=== PATIENT | female | born 1955 | race Caucasian/White ===

== ENCOUNTER 2021-12-13 11:59 | Outpatient (CLI) | payer MEDICARE, SELFPAY ==
--- NOTE | ~2021-12-13 | PE_ITS ---
EXAMINATION: PET skull to mid thigh DATE: 12/13/2021 13:50 INDICATION: Left lung mass. TECHNIQUE: Blood glucose level was 111 mg/dL. 11.813 mCi of 18-fluorodeoxyglucose (18-FDG) was admini stered i.v. Low dose computed tomography (CT) images were acquired from the base of the brain to the proximal thighs for attenuation correction and anatomic localization. Automated exposure control was employed. Dose-length product (DLP) was 311 mGy-cm. Positron emission tomography (PET) images were ac quired in the same distribution. COMPARISON: None FINDINGS: Head/neck: There is increased activity in the oral cavity, pharynx, and glottis without abnormal CT c orrelate, likely physiologic. There are no pathologically enlarged lymph nodes. Chest: There is mild scarring at the lung apices without increased activity. There is mild emphysema. There is a 16 mm nodule in left upper lobe with maximum SUV of 5.6. No pleural effusion. A calcified left lung nodule and calcified mediastinal lymph nodes are consistent with old granulomatous disease . No pleural effusion. The heart size is normal. There are coronary artery calcifications. No pericar dial effusion. Abdomen/pelvis/proximal thighs: The liver, gallbladder, pancreas, and adrenal glands are normal. Calc ifications in the spleen are consistent with old granulomatous disease. The kidneys are normal. There are no dilated loops of bowel. There are no pathologically enlarged lymph nodes. There is no free in traperitoneal fluid. There is no osseous malignancy. IMPRESSION: 1. 16 mm nodule in left lung upper lobe with increased activity, consistent with primary bronchogenic carcinoma. CT-guided biopsy is recommended. Reviewed, dictated and finalized at location B. IMPRESSION: 1. 16 mm nodule in left lung upper lobe with increased activity, consistent wit h primary bronchogenic carcinoma. CT-guided biopsy is recommended.
[2021-12-13 12:24] LABS: Glucose Point of Care 111 mg/dl (65-105)
== END 2021-12-13 12:00 | disposition home or self-care (01) ==
PROVIDERS: PCP Internal Medicine; Visit Provider Internal Medicine
DX: R91.8 Other nonspecific abnormal finding of lung field (principal)
CPT/HCPCS: 78815; A9552

== ENCOUNTER 2022-09-14 10:46 | Observation (INO) | payer MEDICARE, SELFPAY ==
[2022-09-14] VITALS (15 sets, daily range): BP systolic 117–147; BP diastolic 57–83; PULSE 78–115; RESP 14–20; TEMP 36.3–36.6; O2SAT 97–99; BMI 18.6
--- NOTE | ~2022-09-14 | XR_ITS ---
XR chest 2V 09/14/2022 11:22 Indication: Chest pressure. Procedure: 2 view chest Comparison: 04/11/2012 and PET/CT dated 12/13/2021 Findings: There is left thoracic volume loss with surgical changes suggesting partial left pneumonect bridgett. There is evidence for chronic granulomatous disease along the left hilar location. There is a th oracotomy defect involving the left sixth rib. There is left basilar scarring. Right lung clear. Impression: 1: Postsurgical changes of the left chest with associated volume loss. Correlate clinically. Reviewed, dictated and finalized at location A. Impression: 1: Postsurgical changes of the left chest with associated volume loss. Correlat e clinically.
--- NOTE | 2022-09-14 10:56 | ECG_ITS ---
Measurements Intervals [place] Rate: 103 P: 70 [place]: 136 QRS: 102 QRSD: 102 T: 71 QT: 322 QTc: 423 Interpretive Statements SINUS TACHYCARDIA RIGHT AXIS DEVIATION POSSIBLE LEFT ATRIAL ENLARGEMENT INCOMPLETE RIGHT BUNDLE BRANCH BLOCK BORDERLINE ECG NO PREVIOUS ECG AVAILABLE FOR COMPARISON Electronically Signed On 09-14-2022 21:30:11 CDT by Sonny Dee D.O.
--- NOTE | 2022-09-14 11:15 | ED.GENADULT ---
HPI - General Adult General Chief complaint: Chest Pain Stated complaint: Swallowing Issues x3 days Time Seen by Provider: 09/14/22 11:09 History of Present Illness HPI narrative: 67 y/o female presents with upper abdominal pain and difficulty swallowing x 3 days. patient states every time she eats or drinks something it gets stuck. patient has a hx of esophageal shrinking and has had to have her esophagus stretched multiple times in the past with the last time being 5 years ago. patient denies any other symptoms. patient states she just can't eat. Onset (ago): day(s) (3) Related Data Allergies Allergy/AdvReac Type Severity Reaction Status Date / Time No Known Allergies Allergy Verified 09/14/22 10:56 Review of Systems Review of Systems: All systems reviewed & are unremarkable except as noted in HPI and below Constitutional: Constitutional: Reports no additional constitutional complaints Eyes: Eyes: Reports no additional eye complaints ENT: Reports dysphagia Cardiovascular: Cardiovascular: Reports no additional cardiovascular complaints Respiratory: Respiratory: Reports no additional respiratory complaints Gastrointestinal: Gastrointestinal: Reports abdominal pain (upper), Denies constipation, Denies diarrhea, Reports nausea and Denies vomiting Genitourinary: Genitourinary: Reports no additional female genitourinary complaints Musculoskeletal: Musculoskeletal: Reports no additional musculoskeletal complaints Integumentary/Breasts: Skin/Breast: Reports system reviewed and no additional complaints, except as docu Neurologic: Reports system reviewed and no additional complaints, except as documented Psychiatric: Psychiatric: Reports no additional psychiatric complaints Endocrine: Endocrine: Reports no additional endocrine complaints Hematologic/Lymphatic: Hematologic/Lymphatic: Reports no additional hematologic/lymphatic complaints Allergic/Immunologic: Allergic/Immunologic: Reports no additional allergic/immunologic complaints Exam Const: General: alert Nutritional Appearance: thin Orientation/consciousness: patient oriented x3 Limitations: no limitations HENMT: Head: normal to inspection Ears: external ears normal Face/Nose/Sinus: Normal external nose present Mouth: Yes Normal oral and palatal mucosa present Eyes: Conjunctivae: conjunctivae normal EOM: EOMs intact bilaterally Neck: Neck: normal visual inspection Chest: Chest palpation & inspection: normal inspection of the chest Resp: Effort & Inspection: normal respiratory effort Cardio: Rate: tachycardic GI: GI Palp: Yes Soft to palpation and Yes Tenderness to palpation present (GI) (epigastric) : General: Yes bladder normal to palpation Skin: General skin exam: normal color Neuro: General: patient oriented x3 Extrem: General: normal to inspection Psych: Affect: normal affect Course Course Emergency Course: No ASA given. patient is not c/o chest pain. patient has pain with eating and states it gets stuck in her upper abdomen heart score is 2 Consultations Consultation #1: Spoke with Dr. Arellano with GI who accepted the patient as inpatient with hospitalist team Vital Signs Vital signs: Vital Signs Temperature 36.5 C 09/14/22 10:51 Pulse Rate 115 H 09/14/22 10:51 Respiratory Rate 18 09/14/22 10:51 Blood Pressure 129/80 09/14/22 10:51 Pulse Oximetry 97 09/14/22 10:51 Oxygen Delivery Room Air 09/14/22 10:51 Temperature 36.4 C 09/14/22 10:55 Pulse Rate 91 09/14/22 12:16 Respiratory Rate 14 09/14/22 12:16 Blood Pressure 140/78 09/14/22 12:16 Pulse Oximetry 99 09/14/22 12:16 Oxygen Delivery Room Air 09/14/22 11:01 Medical Decision Making MDM Narrative Medical decision making narrative: spoke with ezra with the hospitalist team who accepted the patient with Dr. Dunne consulting for GI. patient made aware of plan and agreeable. patient sleeping at this time in NAD. Vi
[2022-09-14 11:18] LABS: Basophils Percent Auto 0.4 % (0.2-1.2); Eosinophils Absolute Auto 0.1 K/mm3 (0-0.3); Eosinophils Percent Auto 0.9 % (0-4.4); Hematocrit 41.8 % (37.0-47.0); Immature Granulocyte Absolute 0.03 K/mm3 (0.00-0.031); Immature Granulocyte Percent A 0.3 % (0-0.5); Lymphocytes Absolute Auto 2.88 K/mm3 (0.9-3.2); Lymphocytes Percent Auto 28.5 % (18.3-44.2); Mean Corpuscular HGB Conc 33.5 g/dl (32-36); Mean Corpuscular Volume 95.7 fl (80-100); Mean Platelet Volume 9.8 fl (7.4-10.4); Monocytes Absolute Auto 0.6 K/mm3 (0.1-0.6); Monocytes Percent Auto 6.3 % (2.6-8.5); Neutrophils Absolute Auto 6.4 K/mm3 (1.3-6.7); Neutrophils Percent Auto 63.6 % (45.5-73.1); Platelet Count Result 319 k/mm3 (150-375); Red Blood Count 4.37 M/mm3 (4.2-5.4); Red Cell Distribution Width 12.6 % (11.5-14.5); White Blood Count 10.1 K/mm3 (4.5-10.0)
[2022-09-14 11:31] LABS: Alanine Aminotransferase 20 U/L (6-35); Albumin Level 4.5 g/dL (3.5-5.1); Alkaline Phosphatase 101 U/L (38-126); Anion Gap 7 mmol/L (8-16); Aspartate Amino Transferase 25 U/L (14-36); Bilirubin,Total 0.5 mg/dL (0.2-1.3); Blood Urea Nitrogen 24 mg/dL (7-17); Calcium 11.5 mg/dL (8.4-10.2); Carbon Dioxide 25 mmol/L (22-30); Chloride 112 mmol/L (98-107); Estimated CRCL calculation 44 ml/min; Estimated Glomerular Filt Rate > 60; Glucose 132 mg/dL (65-110); Lipase 49 U/L (23-300); Potassium 4.2 mmol/L (3.4-5.0); Sodium 144 mmol/L (137-145)
[2022-09-14 11:32] LABS: INR 1.2; Prothrombin Time 14.4 Seconds (11.1-14.7)
[2022-09-14 11:33] LABS: Partial Thromboplastin Time 33.4 SECONDS (22.3-36.8)
[2022-09-14] MEDS: SODIUM CHLORIDE 0.9% IV 1,000 ML 150 ML IV CONT (11:38)
[2022-09-14 11:41] LABS: Troponin I < 0.012 ng/mL (0.000-0.034)
--- NOTE | 2022-09-14 14:00 | PM.IMHP ---
H&P: HPI History of Present Illness Date/Time: 09/14/22 14:00 Chief Complaint: Difficulty swallowing. Narrative: This is a 67-year-old female smoker with history of esophageal strictures, lung cancer, hypertension, GERD, and depression who presented to the emergency department via private vehicle for evaluation of difficulty swallowing for the last 3 days. Patient provides the following history. On morning she sat down to eat some cereal and she noticed that she was having difficulty swallowing in the serial seem to be just sitting in her esophagus and not moving. She has not been able to eat or really even drink since that time. This is similar to when she required esophageal dilatation in the past. Otherwise she has been doing okay. She denies fever, chills, sweats, chest pain, shortness a breath, vomiting, and diarrhea. Vital signs were stable on arrival. She looks a bit dry on exam and by labs but workup was otherwise unremarkable. She is being admitted in this setting for GI consult. Review of Systems Review of Systems: Twelve systems were reviewed and are negative except for as per HPI. [facility] Past Medical History Medical History (Updated 09/14/22 @ 20:08 by Patti Medina PA-C) Cancer of left lung Status post resection. Chronic obstructive pulmonary disease History of esophageal dilatation Hypertension Tobacco dependence Surgical History Surgical History (Updated 09/14/22 @ 20:08 by Patti Medina PA-C) History of cardiac catheterization History of esophagogastroduodenoscopy History of hysterectomy History of lung biopsy Partial left upper lobectomy for cancer. History of tonsillectomy Family History Family History Other Family history non-contributory Social History Social History (Updated 09/14/22 @ 20:09 by Patti Medina PA-C) Social History: Surrogate medical decision maker: Monique Saravia, spouse. Code status: Full code. Smoking packs per day: 0.25 Smoking cigarettes per day: 5.0 Years smoked: 50 Smoking pack-years: 12.50 Smoking status: Current every day smoker Tobacco type: cigarettes Second hand tobacco smoke exposure: Yes Alcohol intake: never Substance use: current Substance use type: marijuana Lack of Transportation: No Lack of Food: Never True Current Housing: I Have Housing Concerned About Future Housing: YES Difficulty Paying Gas/Electric Bills: No Difficulty Paying for Meds: No Currently Unemployed: No Education: Grade School Difficulty w/ Childcare or Family Care: No Additional living arrangements comments: Lives with spouse in [place]. Spiritual care concerns: No Meds Home Medications and Allergies Home Medications Medication Instructions Recorded Confirmed Type albuterol sulfate 2.5 mg/3 mL 2.5 mg inhalation TID PRN 09/14/22 09/14/22 History (0.083 %) solution for nebulization Shortness Of Breath alendronate 70 mg tablet 70 mg PO WEEKLY 09/14/22 09/14/22 History amlodipine 10 mg tablet 10 mg PO DAILY 09/14/22 09/14/22 History bupropion HCl 150 mg tablet,12 hr 150 mg PO BID 09/14/22 09/14/22 History sustained-release buspirone 10 mg tablet 10 mg PO BID 09/14/22 09/14/22 History gabapentin 300 mg capsule 300 mg PO TID 09/14/22 09/14/22 History lorazepam 0.5 mg tablet 0.5 mg PO PRN PRN Anxiety 09/14/22 09/14/22 History meloxicam 7.5 mg tablet 7.5 mg PO DAILY 09/14/22 09/14/22 History mirtazapine 30 mg tablet 30 mg PO DAILY 09/14/22 09/14/22 History mometasone-formoterol HFA 200 2 puff inhalation BID 09/14/22 09/14/22 History mcg-5 mcg/actuation aerosol inhaler (Dulcandido) oxybutynin chloride 15 mg 15 mg PO DAILY 09/14/22 09/14/22 History tablet,extended release 24 hr sertraline 100 mg tablet 100 mg PO DAILY 09/14/22 09/14/22 History tiotropium bromide 18 mcg capsule 18 mcg inhalation DAILY 09/14/22 09/14/22 History with inhalat
[2022-09-14 15:00] LABS: Troponin I < 0.012 ng/mL (0.000-0.034)
--- NOTE | 2022-09-14 15:02 | ADMGEN ---
This patient, Linh Saravia, was admitted to 3 Med Surg Room 311-01 @ 1420. Patient/family oriented to hospital policies and general routines including ID bracelet, bed and alarms, visiting hours, pain management, procedures, bathroom and other care routines, personal items, smoking policy, room service/diet, and visiting hours. Information on how to activate the Rapid Response Team has been discussed. Patient/Family are encouraged to report perceived risks to care and to ask questions if they do not understand what they are told or what they should do.
[2022-09-14] MEDS: LACTATED RINGERS 1,000 ML 80 ML IV CONT (17:31)
[2022-09-14 18:04] LABS: Troponin I < 0.012 ng/mL (0.000-0.034)
[2022-09-15] VITALS: BP 157/80; PULSE 89; RESP 20; TEMP 36.3; O2SAT 98
[2022-09-15 06:00] VITALS: BP 148/78; PULSE 88; RESP 18; TEMP 36.2; O2SAT 99
[2022-09-15 06:23] LABS: Anion Gap 5 mmol/L (8-16); Blood Urea Nitrogen 19 mg/dL (7-17); Calcium 10.8 mg/dL (8.4-10.2); Carbon Dioxide 26 mmol/L (22-30); Chloride 110 mmol/L (98-107); Estimated CRCL calculation 56 ml/min; Estimated Glomerular Filt Rate > 60; Glucose 97 mg/dL (65-110); Magnesium 2.1 mg/dL (1.6-2.3); Potassium 3.8 mmol/L (3.4-5.0); Sodium 141 mmol/L (137-145)
[2022-09-15] MEDS: LACTATED RINGERS 1,000 ML 80 ML IV CONT ×2 (08:19→21:52)
[2022-09-15] MEDS: UMECLIDINIUM BROMIDE 62.5 MCG ELLIPTA 1 PUFF INHALATION (10:05)
[2022-09-15] MEDS: FLUTICASONE/SALMETEROL 230-21 MCG INHALER 1 PUFF 2 PUFF INHALATION (10:05)
[2022-09-15 10:06] VITALS: O2SAT 96
[2022-09-15] MEDS: MELOXICAM 7.5 MG TABLET PO (12:20)
[2022-09-15] MEDS: MIRTAZAPINE 30 MG TABLET PO (12:20)
[2022-09-15] MEDS: SERTRALINE HCL 50 MG TABLET 100 MG PO (12:20)
[2022-09-15] MEDS: busPIRone HCL 10 MG TABLET PO ×2 (12:20→17:29)
[2022-09-15] MEDS: GABAPENTIN 300 MG CAPSULE PO ×2 (12:20→17:29)
[2022-09-15] MEDS: amLODIPine BESYLATE 5 MG TABLET 10 MG PO (12:21)
[2022-09-15] MEDS: oxyBUTYnin CHLORIDE XL 5 MG TAB.ER.24 15 MG PO (12:21)
[2022-09-15 14:00] VITALS: BP 121/61; PULSE 78; RESP 20; TEMP 36.6; O2SAT 98
--- NOTE | 2022-09-15 14:32 | PM.IMPN ---
Progress Note: A&P Assessment and Plan (1) Dysphagia: Qualifiers: Dysphagia type: unspecified Qualified Code(s): R13.10 - Dysphagia, unspecified Code(s): R13.10 - Dysphagia, unspecified Status: Acute Assessment and Plan: Presented with difficulty swallowing for the last 3 days and reports a history of esophageal strictures requiring dilatation. Sounds to be again and issue with esophageal stricture Patient made NPO but obtained food from the cafeteria and ate pizza despite being NPO Continue NPO diet while awaiting GI consultation Hopeful EGD tomorrow (2) Dehydration: Code(s): E86.0 - Dehydration Status: Acute Assessment and Plan: Noted to be dry on initial exam and by labs Rehydrated with IV fluids and appears euvolemic on my exam today Continue with gentle IV fluids while NPO (3) Hypercalcemia: Code(s): E83.52 - Hypercalcemia Status: Acute Assessment and Plan: Likely due to dehydration. Calcium has improved following IV fluid rehydration Continue to monitor BMP (4) Chronic obstructive pulmonary disease: Code(s): J44.9 - Chronic obstructive pulmonary disease, unspecified Status: Acute Assessment and Plan: No evidence of acute exacerbation. Continue inhalers. (5) Tobacco dependence: Code(s): F17.200 - Nicotine dependence, unspecified, uncomplicated Status: Acute Assessment and Plan: Patient smokes 1/4 pack per day Continue to encourage smoking cessation Declined the need for nicotine patch. (6) Hypertension: Code(s): I10 - Essential (primary) hypertension Status: Acute Assessment and Plan: Blood pressures were reviewed and they are stable. Continue home antihypertensives and monitor. Subjective Date/time seen: 09/15/22 14:32 Interval history: Date of service: 09/15/2022 Linh Saravia is a 67 year old female with a history of left lung cancer s/p lobectomy, COPD, hypertension, tobacco dependence, and esophageal stricture s/p dilation who is seen in follow-up for odynophagia. Patient states that she has not been able to eat anything since Friday because she feels food getting stuck in the middle of her chest and it is very painful when she is swallowing. She denies any choking. She has no trouble getting the food to go down from her mouth but feels that it gets stuck once it is down. She has no abdominal pain. She denies shortness of breath, wheezing, chest pain, palpitations. No urinary symptoms. Patient was very angry that she was NPO, stating that she was starving since she has not had anything to eat since Friday. Because of this, the patient's brought her pizza from the cafeteria that she ate although she was NPO. She did keep the pizza down but had some trouble and again some pain in the middle of her chest with this. Patient then became tearful because she misses her dog at home and does not want to be in the hospital. Review of Systems Review of Systems: All systems reviewed & are unremarkable except as noted in HPI and below Exam Narrative: General: Well-nourished, well-appearing 67-year-old female, sitting up in bed holding a lunch plate, comfortable, NARD Neuro: awake, alert and oriented x4, speech clear, no focal neuro deficits noted HEENMT: normocephalic, atraumatic, EOMI, sclerae anicteric Respiratory: clear to auscultation bilaterally, nonlabored breathing Cardio: regular rate, regular rhythm with S1-S2 Abdomen: nondistended, normoactive bowel sounds, soft, nontender to palpation Extremities: no edema, erythema, or tenderness to palpation Skin: no rashes or lesions, warm and dry Psych: Tearful, judgment and insight intact Objective Data Vital Signs Vital Signs: Vital Signs - 24 hr 09/14/22 15:01 09/14/22 16:00 09/14/22 22:00 Temperature 97.9 F 97.3 F L Pulse Rate 87 78 Respiratory Rate 20
--- NOTE | 2022-09-15 14:50 | WPDGICN ---
Assessment and Plan Assessment and plan (1) Dysphagia: Qualifiers: Dysphagia type: unspecified Qualified Code(s): R13.10 - Dysphagia, unspecified Code(s): R13.10 - Dysphagia, unspecified Status: Acute Assessment and Plan: known history of esophageal stricture that required dilatation (no records) egd in am, will assess and probably dilate again noted that she is using nsaid's and still smoking (2) Epigastric abdominal pain: Code(s): R10.13 - Epigastric pain Status: Acute Assessment and Plan: protonix for now (3) Chronic obstructive pulmonary disease: Code(s): J44.9 - Chronic obstructive pulmonary disease, unspecified Status: Acute Assessment and Plan: stable (4) Cancer of left lung: Code(s): C34.92 - Malignant neoplasm of unspecified part of left bronchus or lung Status: Acute Assessment and Plan: treated (5) Tobacco dependence: Code(s): F17.200 - Nicotine dependence, unspecified, uncomplicated Status: Acute (6) Dehydration: Code(s): E86.0 - Dehydration Status: Acute Assessment and Plan: from not eating, better after treatment GI Consult Note Consult date/time: 09/15/22 14:50 Reason for consult: dysphagia HPI: Linh Saravia is a 67 year old female with?history of left lung cancer s/p lobectomy last year (did not require further intervention), COPD, hypertension, tobacco dependence, and esophageal stricture s/p dilation last time about 5 years ago at [facility]. She came to ER after feeling that food was getting stuck in the middle of her chest and very painful when she was swallowing for almost 3 days, denies any choking.? ER physician ordered NPO status but patient's brought her pizza from the cafeteria that she ate, able to swallow but had discomfort. She is not using ppi, using nsaid's at home. Review of Systems Review of Systems: All systems reviewed & are unremarkable except as noted in HPI and below Constitutional: Constitutional: Denies chills Eyes: Eyes: Denies blurry vision ENT: Reports dysphagia Cardiovascular: Cardiovascular: Reports no additional cardiovascular complaints Respiratory: Respiratory: Reports no additional respiratory complaints Gastrointestinal: Gastrointestinal: Reports abdominal pain (upper), Denies constipation, Denies diarrhea, Reports nausea and Denies vomiting Genitourinary: Genitourinary: Denies hematuria Musculoskeletal: Musculoskeletal: Denies myalgias Integumentary/Breasts: Skin/Breast: Denies dry skin Neurologic: Denies Abnormal speech present Psychiatric: Psychiatric: Reports anxiety PMFSH Past Medical History Medical History (Updated 09/15/22 @ 14:54 by Lázaro Sinclair MD) Cancer of left lung Status post resection. Chronic obstructive pulmonary disease History of esophageal dilatation Hypertension Tobacco dependence Surgical History Surgical History (Updated 09/14/22 @ 20:08 by Patti Medina PA-C) History of cardiac catheterization History of esophagogastroduodenoscopy History of hysterectomy History of lung biopsy Partial left upper lobectomy for cancer. History of tonsillectomy Family History Family History Other Family history non-contributory Social History Social History (Updated 09/14/22 @ 20:09 by Patti Medina PA-C) Social History: Surrogate medical decision maker: Monique Turnerla, spouse. Code status: Full code. Smoking packs per day: 0.25 Smoking cigarettes per day: 5.0 Years smoked: 50 Smoking pack-years: 12.50 Smoking status: Current every day smoker Tobacco type: cigarettes Second hand tobacco smoke exposure: Yes Alcohol intake: never Substance use: current Substance use type: marijuana Lack of Transportation: No Lack of Food: Never True Current Housing: I Have Housing Co
[2022-09-15 21:29] VITALS: BP 120/54; PULSE 70; RESP 14; TEMP 36.4; O2SAT 99
[2022-09-16] VITALS (7 sets, daily range): BP systolic 98–167; BP diastolic 52–91; PULSE 61–96; RESP 14–23; TEMP 36.1–36.5; O2SAT 96–100
[2022-09-16] MEDS: FLUTICASONE/SALMETEROL 230-21 MCG INHALER 1 PUFF 2 PUFF INHALATION (08:24)
[2022-09-16] MEDS: UMECLIDINIUM BROMIDE 62.5 MCG ELLIPTA 1 PUFF INHALATION (08:24)
[2022-09-16] MEDS: LACTATED RINGERS 1,000 ML 80 ML IV CONT ×2 (09:35→10:38)
[2022-09-16] MEDS: MIRTAZAPINE 30 MG TABLET PO (09:38)
[2022-09-16] MEDS: oxyBUTYnin CHLORIDE XL 5 MG TAB.ER.24 15 MG PO (09:38)
[2022-09-16] MEDS: GABAPENTIN 300 MG CAPSULE PO (09:38)
[2022-09-16] MEDS: SERTRALINE HCL 50 MG TABLET 100 MG PO (09:38)
[2022-09-16] MEDS: busPIRone HCL 10 MG TABLET PO (09:39)
[2022-09-16] MEDS: MELOXICAM 7.5 MG TABLET PO (09:39)
[2022-09-16] MEDS: amLODIPine BESYLATE 5 MG TABLET 10 MG PO (09:39)
--- NOTE | 2022-09-16 11:05 | WPDANESEPPF ---
Anes - Initial Pre Proc Eval Procedure: Operation Date: 09/16/22 16:30 Proposed Procedures p Esophagogastroduodenoscopy - Lázaro Sinclair MD Date/Time: 09/16/22 11:05 Surgeon: Dora Mcghee PA-C Pre Op Diagnosis: Dysphagia Patient Data Age: 67 Gender: F Height: 1.57 m Weight: 45.3 kg Last Vital Signs Temp 97.1 F L 09/16/22 10:45 Pulse 73 09/16/22 10:45 Resp 16 09/16/22 10:45 BP 122/52 L 09/16/22 10:45 Pulse Ox 98 09/16/22 10:45 O2 Del Method Room Air 09/16/22 10:45 FiO2 21 09/16/22 08:24 Allergies Allergy/AdvReac Type Severity Reaction Status Date / Time No Known Allergies Allergy Verified 09/16/22 10:41 Home Medications Medication Instructions Recorded Confirmed Type albuterol sulfate 2.5 mg/3 mL 2.5 mg inhalation TID PRN 09/14/22 09/14/22 History (0.083 %) solution for nebulization Shortness Of Breath alendronate 70 mg tablet 70 mg PO WEEKLY 09/14/22 09/14/22 History amlodipine 10 mg tablet 10 mg PO DAILY 09/14/22 09/14/22 History buspirone 10 mg tablet 10 mg PO BID 09/14/22 09/14/22 History gabapentin 300 mg capsule 300 mg PO TID 09/14/22 09/14/22 History lorazepam 0.5 mg tablet 0.5 mg PO PRN PRN Anxiety 09/14/22 09/14/22 History meloxicam 7.5 mg tablet 7.5 mg PO DAILY 09/14/22 09/14/22 History mirtazapine 30 mg tablet 30 mg PO DAILY 09/14/22 09/14/22 History mometasone-formoterol HFA 200 2 puff inhalation BID 09/14/22 09/14/22 History mcg-5 mcg/actuation aerosol inhaler (Dulera) oxybutynin chloride 15 mg 15 mg PO DAILY 09/14/22 09/14/22 History tablet,extended release 24 hr sertraline 100 mg tablet 100 mg PO DAILY 09/14/22 09/14/22 History tiotropium bromide 18 mcg capsule 18 mcg inhalation DAILY 09/14/22 09/14/22 History with inhalation device (Spiriva with HandiHaler) Patient hx anesthesia problems: none Family hx anesthesia problems: none Results Review: All pre-operative results and documents have been reviewed as part of the pre-operative evaluation. [facility] Past Medical History Medical History (Updated 09/15/22 @ 14:54 by Lázaro Sinclair MD) Cancer of left lung Status post resection. Chronic obstructive pulmonary disease History of esophageal dilatation Hypertension Tobacco dependence Surgical History Surgical History (Updated 09/14/22 @ 20:08 by Patti Medina PA-C) History of cardiac catheterization History of esophagogastroduodenoscopy History of hysterectomy History of lung biopsy Partial left upper lobectomy for cancer. History of tonsillectomy Family History Family History Other Family history non-contributory Social History Social History (Updated 09/14/22 @ 20:09 by Patti Medina PA-C) Social History: Surrogate medical decision maker: Monique Saravia, spouse. Code status: Full code. Smoking packs per day: 0.25 Smoking cigarettes per day: 5.0 Years smoked: 50 Smoking pack-years: 12.50 Smoking status: Current every day smoker Tobacco type: cigarettes Second hand tobacco smoke exposure: Yes Alcohol intake: never Substance use: current Substance use type: marijuana Lack of Transportation: No Lack of Food: Never True Current Housing: I Have Housing Concerned About Future Housing: YES Difficulty Paying Gas/Electric Bills: No Difficulty Paying for Meds: No Currently Unemployed: No Education: Grade School Difficulty w/ Childcare or Family Care: No Additional living arrangements comments: Lives with spouse in [place]. Spiritual care concerns: No Anes - Eval Final PreProcedure Day of Procedure 09/16/22 11:05 Patient weight: normal Heart: regular rate and rhythm Lungs: clear to auscultation Airway: Mallampati scale class II Neurological: alert and oriented Last oral intake: >/= 8 hours ASA classification: III Emergent: no Anesthetic plan: proceed Anes
[2022-09-16] MEDS: LACTATED RINGERS 1,000 ML 150 ML IV CONT (11:45)
[2022-09-16] MEDS: ONDANSETRON INJ 4 MG/2 ML VIAL IV PUSH (12:12)
--- NOTE | 2022-09-16 12:35 | PM.DS ---
DS: Admitting Diagnosis Discharge Date 09/16/22 1230 Admitting Diagnosis Dysphagia DS: Discharge Diagnosis Discharge Diagnosis (1) Dysphagia: Qualifiers: Dysphagia type: unspecified Qualified Code(s): R13.10 - Dysphagia, unspecified Code(s): R13.10 - Dysphagia, unspecified Status: Acute Assessment and Plan: Presented with difficulty swallowing for the last 3 days and reports a history of esophageal strictures requiring dilatation. Sounds to be again and issue with esophageal stricture Patient made NPO but obtained food from the cafeteria and ate pizza despite being NPO GI consultation EGD with esophageal stretching preformed Biopsy taken Currently advance diet as tolerated (2) Dehydration: Code(s): E86.0 - Dehydration Status: Acute Assessment and Plan: Noted to be dry on initial exam and by labs Rehydrated with IV fluids and appears euvolemic on my exam today Continue with gentle IV fluids while NPO (3) Hypercalcemia: Code(s): E83.52 - Hypercalcemia Status: Acute Assessment and Plan: Likely due to dehydration. Calcium has improved following IV fluid rehydration Continue to monitor BMP (4) Chronic obstructive pulmonary disease: Code(s): J44.9 - Chronic obstructive pulmonary disease, unspecified Status: Acute Assessment and Plan: No evidence of acute exacerbation. Continue inhalers. (5) Tobacco dependence: Code(s): F17.200 - Nicotine dependence, unspecified, uncomplicated Status: Acute Assessment and Plan: Patient smokes 1/4 pack per day Continue to encourage smoking cessation Declined the need for nicotine patch. (6) Hypertension: Code(s): I10 - Essential (primary) hypertension Status: Acute Assessment and Plan: Blood pressures were reviewed and they are stable. Continue home antihypertensives and monitor. DS: Summary Hospital Course Hospital Course: patient is 67-year-old female with a past medical history of esophageal stricture, lung cancer, hypertension, GERD, depression who presented to the ED with complaints dysphagia for the last 3 days. Upon arrival patient was NPO and GI was consulted. Patient was taken for an EGD for esophageal stretching. Biopsies were also taken as well. Prior to EGD patient was noted to be eating pizza. Patient did go down for an EGD and esophageal stretching was successful. Biopsies were also performed. Patient will need to follow up with GI in 3 weeks. Patient will also need to stop her meloxicam and NSAIDs at this time. Patient is also been started on Protonix twice a day per GI recommendations. GI is also on a the patient have Carafate for next 2 weeks. Patient was also noted to be dehydrated and was given IV fluids. Labs have remained stable. Patient currently denies any chest pain, shortness a breath, nausea, vomiting, diarrhea or constipation. Smoking cessation education has been given. Patient is stable for discharge at this time. Time spent discussing smoking cessation with patient: more than 10 minutes Status at Discharge Cognitive/behavioral status at discharge: Diagnostic testing, chart review, developing a treatment plan, education, care coordination documentation, physical exam, result review Functional status at discharge: independent ambulation Overall status at discharge: patient is progressing back to baseline Time Spent with Patient Time attestation: Total time spent providing and/or coordinating discharge services: 48 minutes Time spent: Greater than 30 minutes Specific discharge activities: Diagnostic testing, chart review, developing a treatment plan, education, care coordination documentation, physical exam, result review Exam Narrative: General: Well-nourished, well-appearing 67-year-old female, sitting up in bed, comfortable, NARD Neuro: awake, alert and oriented x4, speech nisa
== END 2022-09-16 15:25 | disposition home or self-care (01) ==
LOC: ANHED 12:31 → ANH3MEDSUR 17:39
PROVIDERS: Emergency Medicine; Internal Medicine Gastroenterology; Physician Assistant; Admitting Provider Internal Medicine; Emergency Provider Nurse Practitioner Family; PCP Internal Medicine; Visit Provider Physician Assistant
PROC: 0DJ08ZZ Inspection of Upper Intestinal Tract, Via Natural or Artificial Opening Endoscopic (ICD-10-PCS; CPT 43235; principal; 2022-09-16 16:30)
DX: K22.2 Esophageal obstruction (principal); K21.00 Gastro-esophageal reflux disease with esophagitis, without bleeding; K29.70 Gastritis, unspecified, without bleeding; E86.0 Dehydration; E83.52 Hypercalcemia; J44.9 Chronic obstructive pulmonary disease, unspecified; C34.92 Malignant neoplasm of unspecified part of left bronchus or lung; I10 Essential (primary) hypertension; R00.0 Tachycardia, unspecified; I45.10 Unspecified right bundle-branch block; Z90.2 Acquired absence of lung [part of]; F17.210 Nicotine dependence, cigarettes, uncomplicated; F12.90 Cannabis use, unspecified, uncomplicated; Z87.19 Personal history of other diseases of the digestive system; Z85.118 Personal history of other malignant neoplasm of bronchus and lung; Z79.1 Long term (current) use of non-steroidal anti-inflammatories (NSAID); Z79.51 Long term (current) use of inhaled steroids; Z79.899 Other long term (current) drug therapy
CPT/HCPCS: 43239; 43249; 36415; 71046; 80048; 80053; 83690; 83735; 84484; 85025; 85610; 85730; 88305; 88312; 93005; 94640; 96361; 96365; 96375; 99285; A9270; C1726; G0378; J0131; J2405; J2704; J7030; J7120

== ENCOUNTER 2022-10-20 09:22 | Emergency (ER) | payer MEDICARE, SELFPAY ==
[2022-10-20 09:27] VITALS: PULSE 132; RESP 20; TEMP 36.2; O2SAT 100
[2022-10-20] MEDS: ONDANSETRON INJ 4 MG/2 ML VIAL IV PUSH (10:29)
[2022-10-20] MEDS: SODIUM CHLORIDE 0.9% IV 1,000 ML 999 ML IV CONT ×2 (10:29→12:43)
[2022-10-20 10:37] LABS: Basophils Percent Auto 0.2 % (0.2-1.2); Hematocrit 50.4 % (37.0-47.0); Hemoglobin 16.3 g/dL (12.0-15.0); Immature Granulocyte Absolute 0.04 K/mm3 (0.00-0.031); Immature Granulocyte Percent A 0.4 % (0-0.5); Lymphocytes Absolute Auto 1.97 K/mm3 (0.9-3.2); Lymphocytes Percent Auto 17.7 % (18.3-44.2); Mean Corpuscular HGB Conc 32.3 g/dl (32-36); Mean Corpuscular Volume 95.8 fl (80-100); Mean Platelet Volume 10.1 fl (7.4-10.4); Monocytes Absolute Auto 0.7 K/mm3 (0.1-0.6); Monocytes Percent Auto 5.9 % (2.6-8.5); Neutrophils Absolute Auto 8.4 K/mm3 (1.3-6.7); Neutrophils Percent Auto 75.8 % (45.5-73.1); Platelet Count Result 421 k/mm3 (150-375); Red Blood Count 5.26 M/mm3 (4.2-5.4); Red Cell Distribution Width 13.3 % (11.5-14.5); White Blood Count 11.1 K/mm3 (4.5-10.0)
[2022-10-20 11:01] LABS: Alanine Aminotransferase 24 U/L (6-35); Albumin Level 5.7 g/dL (3.5-5.1); Alkaline Phosphatase 122 U/L (38-126); Anion Gap 14 mmol/L (8-16); Aspartate Amino Transferase 29 U/L (14-36); Bilirubin,Total 0.7 mg/dL (0.2-1.3); Blood Urea Nitrogen 22 mg/dL (7-17); Calcium 13.2 mg/dL (8.4-10.2); Carbon Dioxide 28 mmol/L (22-30); Chloride 101 mmol/L (98-107); Estimated CRCL calculation 46 ml/min; Estimated Glomerular Filt Rate > 60; Glucose 142 mg/dL (65-110); Lipase 64 U/L (23-300); Sodium 143 mmol/L (137-145)
[2022-10-20 11:34] LABS: Appearance Urine Clear (Clear); Bilirubin Urine Negative (Negative); Blood Urine Negative (Negative); Color Urine Yellow (Yellow); Glucose Urine UA Negative (Negative); Ketones Urine Negative (Negative); Leukocyte Esterase Ur Negative LEU/UL (Negative); Nitrate Urine Negative (Negative); Protein Urine Negative (Negative); Specific Grav Ur 1.007 (1.001-1.035); Urobilinogen Urine 0.2 mg/dL (<2.0); pH Urine 7.5 (5.0-9.0)
[2022-10-20 11:49] LABS: Add Urine Microscopic? NO
[2022-10-20 11:51] VITALS: BP 142/87; PULSE 101; RESP 16; O2SAT 97
--- NOTE | 2022-10-20 13:26 | ED.NAVMDI ---
HPI - Nausea/Vomiting/Diarrhea General Chief complaint: Nausea/Vomiting/Diarrhea Stated complaint: N/V, no appetite Time Seen by Provider: 10/20/22 10:07 History of Present Illness HPI Narrative: Patient is a 67-year-old female who presents with nausea and vomiting. Ongoing for last 6 days. Reports she cannot keep down any food or water. Feels like it is her stomach and she vomits, sometimes feels like it gets stuck in her chest. Has history of esophageal stricture with dilation in the last month. No alleviating factors at home. Related Data Home Medications Medication Instructions Recorded Confirmed albuterol sulfate 2.5 mg/3 mL 2.5 mg inhalation TID PRN 09/14/22 09/14/22 (0.083 %) solution for nebulization Shortness Of Breath alendronate 70 mg tablet 70 mg PO WEEKLY 09/14/22 09/14/22 amlodipine 10 mg tablet 10 mg PO DAILY 09/14/22 09/14/22 buspirone 10 mg tablet 10 mg PO BID 09/14/22 09/14/22 gabapentin 300 mg capsule 300 mg PO TID 09/14/22 09/14/22 lorazepam 0.5 mg tablet 0.5 mg PO PRN PRN Anxiety 09/14/22 09/14/22 mirtazapine 30 mg tablet 30 mg PO DAILY 09/14/22 09/14/22 mometasone-formoterol HFA 200 2 puff inhalation BID 09/14/22 09/14/22 mcg-5 mcg/actuation aerosol inhaler (Dulera) oxybutynin chloride 15 mg 15 mg PO DAILY 09/14/22 09/14/22 tablet,extended release 24 hr sertraline 100 mg tablet 100 mg PO DAILY 09/14/22 09/14/22 tiotropium bromide 18 mcg capsule 18 mcg inhalation DAILY 09/14/22 09/14/22 with inhalation device (Spiriva with HandiHaler) Allergies Allergy/AdvReac Type Severity Reaction Status Date / Time No Known Allergies Allergy Verified 10/20/22 10:48 Review of Systems Review of Systems: All systems reviewed & are unremarkable except as noted in HPI and below Constitutional: Constitutional: Denies chills, Denies fatigue and Denies fever(s) Cardiovascular: Cardiovascular: Denies chest pain, Denies rapid heart rate and Denies radiating jaw, neck or arm pain Respiratory: Respiratory: Denies cough and Denies dyspnea Gastrointestinal: Gastrointestinal: Reports abdominal pain, Denies diarrhea, Reports nausea and Reports vomiting PMFSH Past Medical History Medical History (Updated 10/20/22 @ 14:22 by Zach Latif MD) Cancer of left lung Status post resection. Chronic obstructive pulmonary disease History of esophageal dilatation Hypertension Tobacco dependence Surgical History Surgical History (Updated 09/14/22 @ 20:08 by Patti Medina PA-C) History of cardiac catheterization History of esophagogastroduodenoscopy History of hysterectomy History of lung biopsy Partial left upper lobectomy for cancer. History of tonsillectomy Family History Family History Other Family history non-contributory Social History Social History (Updated 09/14/22 @ 20:09 by Patti Medina PA-C) Social History: Surrogate medical decision maker: Monique Saravia, spouse. Code status: Full code. Smoking packs per day: 0.25 Smoking cigarettes per day: 5.0 Years smoked: 50 Smoking pack-years: 12.50 Smoking status: Current every day smoker Tobacco type: cigarettes Second hand tobacco smoke exposure: Yes Alcohol intake: never Substance use: current Substance use type: marijuana Lack of Transportation: No Lack of Food: Never True Current Housing: I Have Housing Concerned About Future Housing: YES Difficulty Paying Gas/Electric Bills: No Difficulty Paying for Meds: No Currently Unemployed: No Education: Grade School Difficulty w/ Childcare or Family Care: No Additional living arrangements comments: Lives with spouse in [place]. Spiritual care concerns: No Exam Narrative: GENERAL: Well-appearing, awake, and mild distress. HEAD: Normocephalic, atraumatic. ENT: Mucous membranes moist. NECK: Supple. CHEST: Clear to auscultation. No respiratory distress. H
[2022-10-20 14:46] VITALS: BP 136/78; PULSE 89; RESP 16; O2SAT 97
== END 2022-10-20 14:48 | disposition home or self-care (01) ==
PROVIDERS: Emergency Provider Emergency Medicine; PCP Internal Medicine
DX: R11.2 Nausea with vomiting, unspecified (principal); J44.9 Chronic obstructive pulmonary disease, unspecified; I10 Essential (primary) hypertension; F17.210 Nicotine dependence, cigarettes, uncomplicated
CPT/HCPCS: 36415; 80053; 81003; 83690; 85025; 96361; 96374; 99284; J2405; J7030